=== PATIENT | male | born 1965 | race Caucasian/White ===

== ENCOUNTER → 2022-08-11 | Outpatient (CLI) | payer MEDICAID, SELFPAY ==
--- NOTE | 2022-08-11 10:04 | VDUE_ITS ---
Reason For Study: Pre op testing Right Arm Left Arm Right Cephalic Vein at the wrist measures Left Cephalic Vein at the wrist measures 0.19 x 0.20 cm. 0.14 x 0.15 cm. Right Cephalic Vein in the forearm measures Left Cephalic Vein in the forearm measures 0.22 x 0.24 cm. 0.14 x 0.14 cm. Right Cephalic Vein below antecub measures Left Cephalic Vein below antecub measures 0.21 x 0.21 cm. 0.25 x 0.25 cm. Right Cephalic Vein above antecub measures Left Cephalic Vein above antecub measures 0.34 x 0.37 cm. 0.34 x 0.35 cm. Right Cephalic Vein mid bicep measures 0.34 Left Cephalic Vein at mid bicep measures x 0.34 cm. 0.40 x 0.42 cm. Right Cephalic Vein at the shoulder measures Left Cephalic Vein at the shoulder measures 0.37 x 0.39 cm. 0.44 x 0.43 cm. Right Basilic Vein at the origin measures Basilic vein at origin measures 0.44 x 0.43 0.34 x 0.37 cm. cm. Right Basilic Vein mid bicep measures 0.35 x Basilic vein at bicep measures 0.39 x 0.40 0.36 cm. cm. Right Basilic Vein above antecub measures Basilic vein above antecub measures 0.52 x 0.41 x 0.41 cm. 0.51 cm. Right Brachial artery measures 0.39 x 0.39 Left Brachial artery measures 0.45 x 0.46 cm cm with a velocity of 138 cm/sec. with a velocity of 140.1 cm/sec. Right Radial artery measures 0.31 x 0.31 cm Left Radial artery measures 0.27x 0.27 cm with a velocity of 102.9 cm/sec. with a velocity of 96.3 cm/sec. VL/Dialysis Vein Map PRE-OP BILAT Interpretation Summary Patent and compressible bilateral upper extremity cephalic and basilic veins wi th dimensions as noted. Distal forearm bilateral cephalic veins small in diameter. Normal diameter and flow bilateral brachial and radial arteries Ordering Physician: Seng Davis Referring Physician: Heladio Alvarez Performed By: Leena Cordero RVT ???
== END | disposition home or self-care (01) ==
LOC: CVS 10:02
PROVIDERS: PCP Family Medicine; Referring Provider Surgery; Visit Provider Surgery
DX: Z01.818 Encounter for other preprocedural examination (principal)
CPT/HCPCS: 93985

== ENCOUNTER → 2024-05-25 | Outpatient (CLI) | payer MEDICAID, SELFPAY | END | disposition home or self-care (01) | LOC: LABSPEC 02-09 15:30 | PROVIDERS: PCP Family Medicine; Referring Provider Internal Medicine Hematology & Oncology; Visit Provider Internal Medicine Hematology & Oncology | DX: D64.9 Anemia, unspecified (principal); C7A.1 Malignant poorly differentiated neuroendocrine tumors | CPT/HCPCS: 86850; 86900; 86901; 86920; 86922 ==

== ENCOUNTER → 2024-05-25 | Outpatient (CLI) | payer MEDICAID, SELFPAY | END | disposition home or self-care (01) | LOC: LABSPEC 15:51 | PROVIDERS: PCP Family Medicine; Visit Provider Obstetrics & Gynecology | DX: D64.9 Anemia, unspecified (principal) | CPT/HCPCS: 86850; 86900; 86901; 86920; 86922 ==